=== PATIENT | male | born 1960 | race Two or more races ===

== ENCOUNTER 2019-03-04 07:43 | Day surgery (SDC) | payer OTHER ==
[2019-03-04] MEDS ORDERED: MORPHINE SULFATE/PF 10 MG/10ML (1MG/ML) AMPUL ONE (10:15)
[2019-03-04] MEDS ORDERED: BUPIVACAINE MPF 0.5% W/EPI INJ 30 ML VIAL ONE (10:16)
[2019-03-04] MEDS ORDERED: EPINEPHRINE (1:1000) 1 MG/ML AMPUL ONE (10:16)
== END 2019-03-04 14:07 | disposition home or self-care (01) ==
LOC: DS 07:43
PROVIDERS: ATTEND Orthopaedic Surgery
DX: M75.41 Impingement syndrome of right shoulder (principal); M94.211 Chondromalacia, right shoulder; I11.0 Hypertensive heart disease with heart failure; I50.9 Heart failure, unspecified; Z79.899 Other long term (current) drug therapy
CPT/HCPCS: 23120; 29823; A4217; J0171; J0330; J0690; J1100; J2274; J2370; J2405; J2704; J3490